=== PATIENT | female | born 1965 | race Caucasian/White ===

== ENCOUNTER → 2019-10-07 09:10 | Outpatient (CLI) | payer OTHER, SELFPAY ==
[2019-10-08 14:35] LABS: Covid-19 Nasal PCR Sendout Lex POSITIVE
== END ==
PROVIDERS: Visit Provider Family Medicine
DX: Z03.818 Encounter for observation for suspected exposure to other biological agents ruled out (principal)
CPT/HCPCS: U0004

== ENCOUNTER → 2020-02-03 07:45 | Outpatient (CLI) | payer OTHER, SELFPAY ==
[2020-02-03 11:16] LABS: Coronavirus 19 IgG Antibody Positive (Negative); Coronavirus 19 IgM Antibody Negative (Negative)
== END ==
PROVIDERS: PCP Family Medicine; Visit Provider Family Medicine
DX: Z01.818 Encounter for other preprocedural examination (principal); Z03.818 Encounter for observation for suspected exposure to other biological agents ruled out; Z86.19 Personal history of other infectious and parasitic diseases; G47.33 Obstructive sleep apnea (adult) (pediatric); G47.36 Sleep related hypoventilation in conditions classified elsewhere
CPT/HCPCS: 36415; 86328; 95811

== ENCOUNTER → 2020-02-25 16:31 | Outpatient (CLI) | payer OTHER, SELFPAY ==
[2020-02-25 19:00] LABS: Ferritin 73.1 ng/ml (11.1-264)
== END ==
PROVIDERS: Visit Provider Nurse Practitioner Family
DX: E83.10 Disorder of iron metabolism, unspecified (principal); G25.81 Restless legs syndrome; Z86.39 Personal history of other endocrine, nutritional and metabolic disease
CPT/HCPCS: 36415; 82728

== ENCOUNTER → 2022-07-25 09:58 | Outpatient (CLI) | payer OTHER, SELFPAY ==
--- NOTE | 2022-07-25 10:04 | XR_ITS ---
FINAL REPORT CLINICAL HISTORY: bilat heel/arch pain, ankle swelling, cyst removed on rt foot 2004 FINDINGS: RIGHT FOOT: Three views of the right foot were obtained. There is no acute fracture or dislocation. A plantar calcaneal spur is present. Pes planus deformity is present as well. There is mild degenerative change of the 1st toe metatarsophalangeal joint.. There is no soft tissue abnormality. IMPRESSION: No acute bony abnormality. 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 Reviewed, Interpreted and Dictated by Levon Paulino III, MD Transcribed by Genesis Mercer Authenticated and . [facility]
--- NOTE | 2022-07-25 10:04 | XR_ITS ---
FINAL REPORT CLINICAL HISTORY: bilat heel/arch pain, ankle swelling, cyst removed on rt foot 2004 FINDINGS: LEFT FOOT: Three views of the left foot were obtained. There is no acute fracture or dislocation. A plantar calcaneal spur is present. Pes planus deformity is noted. There is mild degenerative change of the 1st toe metatarsophalangeal joint.. There is no soft tissue abnormality. IMPRESSION: Plantar calcaneal spur and pes planus deformity is present. Mild degenerative change of the 1st toe metatarsophalangeal joint. Reviewed, Interpreted and Dictated by Levon Paulino III, MD Transcribed by Genesis Mercer Authenticated and . [facility]
== END ==
PROVIDERS: PCP Internal Medicine Adolescent Medicine; Visit Provider Nurse Practitioner Family
DX: M79.671 Pain in right foot (principal); M79.672 Pain in left foot
CPT/HCPCS: 73630